=== PATIENT | male | born 2000 | race African-American/Black ===

== ENCOUNTER 2021-03-15 14:01 | Emergency (ER) | payer OTHER, SELFPAY ==
--- NOTE | ~2021-03-15 | XR_ITS ---
EXAMINATION: XR chest 2V DATE: 03/15/2021 14:38 INDICATION: Anterior chest pain. TECHNIQUE: Frontal and lateral views of the chest were obtained. COMPARISON: None. FINDINGS: The chest demonstrates clear lungs without pneumonia, pleural effusion, or pneumothorax. Th e heart size is normal. IMPRESSION: 1. No acute cardiopulmonary disease. Reviewed, dictated and finalized at location A. [facility]
[2021-03-15 14:10] VITALS: BP 129/74; PULSE 58; RESP 16; TEMP 36.2; O2SAT 100
--- NOTE | 2021-03-15 14:21 | ED.GENADULT ---
HPI - General Adult General Chief complaint: Chest Pain Stated complaint: CHEST PAIN Source: patient Mode of arrival: ambulatory Limitations: no limitations History of Present Illness HPI narrative: 20 y/o AA male. PMHx negative per client. Presents to [facility] today with acute complaints of RT side chest discomfort, worse if he coughs or bends over . He describes the pain as sharp and intermittent. No falls or chest trauma. No associated dizziness, weakness, palpitations, dyspnea, edema. Client notes it sometimes hurts when he touches the area. Non-smoker. No known family history of coronary Sx. He is without additional acute c/o illness upon PE. Related Data Allergies Allergy/AdvReac Type Severity Reaction Status Date / Time No Known Allergies Allergy Verified 03/15/21 14:09 Review of Systems Review of Systems: CONSTITUTIONAL: Denies fever, chills, sweats. EYES: Denies visual changes, redness, discharge. ENT: Denies rhinorrhea, congestion, sore throat, otalgia. CARDIOVASCULAR: Positive chest pain. No palpitations, edema. RESPIRATORY: Denies dyspnea, wheezing, cough GASTROINTESTINAL: Denies abdominal pain, nausea, vomiting, diarrhea. GENITOURINARY: Denies dysuria, hematuria, abnormal discharge SKIN: Denies rash or itching. MUSCULOSKELETAL: Denies acute back pain, joint pain, or myalgia. NEUROLOGIC: Denies numbness, or focal weakness. PSYCHIATRIC: Denies anxiety or depression. All systems reviewed & are unremarkable except as noted in HPI and below Exam Narrative: GENERAL: This is a well-nourished, well-developed adult, in no apparent distress. HEAD: normocephalic, atraumatic. EYES: Sclera clear/white. EARS: External ears normal. NOSE: External nose normal. THROAT: Mucous membranes moist. NECK: Neck supple, non-tender without lymphadenopathy, masses or thyromegaly. CARDIOVASCULAR: Regular rate and rhythm without murmurs, gallops, or rubs. RESPIRATORY: Clear to auscultation. Breath sounds equal bilaterally. No wheezes, rales, or rhonchi. He does exhibit reproducible chest wall tenderness surrounding RT lower intercostal spaces 8-10. No chest wall deformity or crepitus, chest wall rises symmetrically. GASTROINTESTINAL: Abdomen soft, non-tender, nondistended. SKIN: warm, intact. NEURO: No focal neurologic deficits. Course Vital Signs Vital signs: Vital Signs Temperature 36.2 C L 03/15/21 14:10 Pulse Rate 58 L 03/15/21 14:10 Respiratory Rate 16 03/15/21 14:10 Blood Pressure 129/74 03/15/21 14:10 Pulse Oximetry 100 03/15/21 14:10 Temperature 36.2 C L 03/15/21 14:10 Pulse Rate 58 L 03/15/21 14:10 Respiratory Rate 16 03/15/21 14:10 Blood Pressure 129/74 03/15/21 14:10 Pulse Oximetry 100 03/15/21 14:10 Medical Decision Making MDM Narrative Medical decision making narrative: -Normotensive and hemodynamically stable. Pulse regular. -ECG SR rate 56 bpm, no ischemic findings, no old for comparison. -Plain film chest imaging reveals no acute cardiopulmonary processes. -Reproducible chest wall pain on exam, without crepitus or deformity. -NSAID PRN & Medrol dose pack. Rest, avoid irritation or exacerbating activity until healed. -PCP F/U 1WK. -ER W/Emergent health status changes. Pt agrees. Differential Diagnosis Differential Diagnosis: Differential Diagnosis: Consideration of the following conditions may be warranted for the presenting problem, they are not final diagnoses: Chest wall pain, Costochondritis, ACS, Pleurisy, PNA, upper respiratory infection, bronchitis, and other. Medical Records Medical records reviewed: Yes I reviewed the external patient's medical records. Vital Signs Vital Signs: Vital Signs Temperature 36.2 C L 03/15/21 14:10 Pulse Rate 58 L 03/15/21 14:10 Respiratory Rate 16 03/15/21 14:10 Blood Pressure 129/74 03/15/21 14:10 Pulse Oximetry 100 03/15/21 14:10 Temperature 36.2 C L 03/15/21 14:10 Pulse Rate 58 L
--- NOTE | 2021-03-15 14:23 | ECG_ITS ---
Measurements Intervals [place] Rate: 56 P: 61 RI: 150 QRS: 73 QRSD: 95 T: 46 QT: 381 QTc: 369 Interpretive Statements SINUS BRADYCARDIA WITH SINUS ARRHYTHMIA BORDERLINE ECG Electronically Signed On 03-15-2021 17:10:07 COMMODITY DIRECTOR by Carlos Campos D.O.
== END 2021-03-15 14:53 | disposition home or self-care (01) ==
PROVIDERS: Emergency Provider Nurse Practitioner Adult Health
DX: R07.89 Other chest pain (principal)
CPT/HCPCS: 71046; 93005; 99213; G0463